=== PATIENT | female | born 1985 | race Caucasian/White ===

== ENCOUNTER 2017-03-27 21:12 | Emergency (ER) | payer BC, OTHER ==
[2017-03-27] MEDS: AMOXICILLIN 500MG CAPSULE PO ONE (22:07)
[2017-03-27] MEDS: DEXAMETHASONE SOD PHOSPHATE 10MG/ML VIAL PO ONE (22:07)
--- NOTE | 2017-03-27 22:07 | Emergency Department Record ---
History of Present Illness - General Chief complaint: ENT Stated complaint: LUMP IN THROAT Time Seen by Provider: 03/27/17 21:47 Source: Patient Mode of Arrival: Ambulatory Limitations: No limitations - History of Present Illness Initial comments: 32 yo female presents with a sore throat that started yesterday. No fevers. No voice changes. No cough. It is sore to swallow. No sputum. She is tender on the right side. She noticed some swollen glands. No choking or gagging. No ear pain. No chest pain. MD complaint: Sore throat Onset/Timin -: Days(s) Location: Throat Severity: Moderate Severity scale (1-10): 6 Consistency: Constant Improves with: None Worsens with: Eating, Swallowing, Other Associated Symptoms: Pain with swallowing, Sore throat - Related Data Home Medications Medication Instructions Recorded Confirmed Last Taken Clonazepam [Klonopin] 1 mg PO QHS 03/24/16 03/27/17 03/26/17 Acetaminop W/ Codeine 300/60Mg 1 tab PO Q6H 03/27/17 03/27/17 03/27/17 [Acetaminophen-Cod #4 Tablet] Hydroxyzine HCl [Hydroxyzine HCl] 25 mg PO Q4H 03/27/17 03/27/17 03/27/17 Previous Rx's Medication Instructions Recorded Amoxicillin 500 mg PO TID #21 capsule 03/27/17 Allergies Allergy/AdvReac Type Severity Reaction Status Date / Time NSAIDS (Non-Steroidal AdvReac ulcer Verified 03/24/16 01:41 Anti-Inflamma Travel Screening - Travel/Exposure Within Last 30 Days Have you traveled within the last 30 days?: No - Travel Symptoms Symptom Screening: None Review of Systems Constitutional: Denies: Chills, Fever, Malaise, Weakness Eyes: Denies: Eye discharge, Eye pain, Photophobia, Vision change ENT: Reports: Congestion, Throat pain. Denies: Epistaxis Respiratory: Denies: Cough, Dyspnea, Hemoptysis, Stridor, Wheezes Cardiovascular: Denies: Chest pain, Palpitations, Syncope Endocrine: Denies: Fatigue, Polydipsia, Polyuria Gastrointestinal: Denies: Abdominal pain, Diarrhea, Nausea, Vomiting Genitourinary: Reports: Dysuria (recent lithotripsy) Musculoskeletal: Denies: Arthralgia, Back pain, Neck pain Skin: Denies: Bruising, Change in color, Rash Neurological: Denies: Headache Psychiatric: Denies: Anxiety Hematological/Lymphatic: Denies: Easy bleeding, Easy bruising, Swollen glands Past Medical History - SOCIAL HISTORY Smoking Status: Never smoker Alcohol Use: None Drug Use: None - RESPIRATORY Hx Respiratory Disorders: No - CARDIOVASCULAR Hx Cardio Disorders: No - NEURO Hx Neuro Disorders: No - GI Hx GI Disorders: Yes Hx Ulcer: Yes - Hx Genitourinary Disorders: No - ENDOCRINE Hx Endocrine Disorders: No - MUSCULOSKELETAL Hx Musculoskeletal Disorders: No - PSYCH Hx Psych Problems: Yes Hx Anxiety: Yes - HEMATOLOGY/ONCOLOGY Hx Hematology/Oncology Disorders: Yes Hx Anemia: Yes Family Medical History Any Significant Family History?: Yes Family Hx Comment (NOT TO BE USED IN PLACE OF ITEMS BELOW): Mother-'s palsy Hx Cancer: Grandparents *Cancer Comment: Grandfather Hx Diabetes: Grandparents Hx Heart Disease: Grandparents Hx HTN: Grandparents Hx Resp Disorders: Mother Hx Stroke: Grandparents Physical Exam - General General Appearance: Alert, Oriented x3, Cooperative, No acute distress, Other ( Well appearing, calm, clear voice) Limitations: No limitations - Head Head exam: Normal inspection - Eye Eye exam: Normal appearance. negative: Conjunctival injection, Periorbital swelling, Periorbital tenderness, Scleral icterus - ENT ENT exam: Normal exam, Mucous membranes moist Ear exam: Normal external inspection Nasal Exam: Normal inspection Mouth exam: Normal external inspection, Tongue normal. negative: Drooling, Muffled voice, Tongue elevation Teeth exam: Normal inspection Throat exam: Normal inspection. negative: Tonsillar erythema, Tonsillomegaly, Tonsillar exudate, R peritonsillar mass, L peritonsillar mass - Neck Neck exam: Normal inspection, Lymphadenopathy (few small mobile tender right sided lymphnodes). negative: Meningismus - Respiratory Respiratory exam: Normal lung sounds bilaterally. negative: Respiratory distress, Stridor (clear voice, non labored) - Cardiovascular Cardiovascular Exam: Regular rate, Normal rhythm, Normal heart sounds - GI/Abdominal GI/Abdominal exam: Soft - Rectal Rectal exam: Deferred - exam: Deferred - Extremities Extremities exam: Normal inspection, Full ROM, Normal capillary refill. negative: Pedal edema, Tenderness - Back Back exam: Reports: Normal inspection, Full ROM. Denies: Muscle spasm, Rash noted, Tenderness - Neurological Neurological exam: Alert, Normal gait, Oriented X3 - Psychiatric Psychiatric exam: Normal affect, Normal mood. negative: Agitated, Anxious - Skin Skin exam: Dry, Intact, Normal color, Warm. negative: Erythema Course Vital Signs 03/27/17 21:20 Temperature 98.3 F Pulse Rate 83 Respiratory 16 Rate Blood Pressure 133/86 Pulse Ox 99 - Reevaluation(s) Reevaluation #1: The patient is well appearing Normal voice. Mild lymph adenopathy on the right Normal vitals Given the swollen LN she will be given Decadron and Amoxicillin We discussed reasons to return and close follow up 03/27/17 22:05 Disposition Disposition: Discharge Clinical Impression: Cervical lymphadenopathy Disposition: Home, Self-Care Condition: (1) Good Instructions: Adenitis (ED) Additional Instructions: REturn immediately if worse, fever, swelling, voice changes or concerns Call your doctor this week for close follow up Prescriptions: Amoxicillin 500 mg PO TID #21 capsule Forms: Patient Portal Access Time of Disposition: 22:08
== END 2017-03-27 23:18 | disposition home or self-care (01) ==
LOC: ER 21:12
DX: R59.1 Generalized enlarged lymph nodes (principal)
CPT/HCPCS: 96374; 99283

== ENCOUNTER 2018-07-08 12:03 | Emergency (ER) | payer SELFPAY ==
[2018-07-08] MEDS ORDERED: ONDANSETRON HCL IV 4 MG/2 ML VIAL IV ONE (12:36)
[2018-07-08] MEDS ORDERED: 0.9 % SODIUM CHLORIDE 1,000 ML BAG IV ONE (12:36)
[2018-07-08] MEDS ORDERED: KETOROLAC 30 MG/ML VIAL IVP ONE (12:36)
[2018-07-08 12:40] LABS: URINE APPEARANCE CLEAR; URINE BILIRUBIN NEGATIVE (NEGATIVE); URINE BLOOD TRACE-I (NEGATIVE); URINE COLOR YELLOW; URINE GLUCOSE (UA) NEGATIVE (NEGATIVE); URINE KETONE NEGATIVE (NEGATIVE); URINE LEUKOCYTE ESTERASE NEGATIVE (NEGATIVE); URINE NITRITE NEGATIVE (NEGATIVE); URINE PROTEIN NEGATIVE (NEGATIVE); URINE UROBILINOGEN 0.2 E.U./dL (0.20 - 1.00)
--- NOTE | 2018-07-08 12:42 | Emergency Department Record ---
History of Present Illness - General Chief complaint: Flank Pain Stated complaint: KIDNEY STONE Time Seen by Provider: 07/08/18 12:31 Source: Patient, RN notes reviewed Mode of Arrival: Ambulatory - History of Present Illness Initial comments: left flank pain and history of kidney stones and urologist is Dr. Jaimes. pain on palpation of the lower left lumbar spine area Onset/Timin -: Week(s) Severity scale (1-10): 9 Quality: Sharp Consistency: Constant Improves with: None Patient : No LMP Date: 06/10/18 Gestational Age (wks) based on LMP: 4 Associated Symptoms: Dysuria - Related Data Home Medications Medication Instructions Recorded Confirmed Last Taken Escitalopram Oxalate [Lexapro] 10 mg PO DAILY 07/08/18 07/08/18 Unknown Previous Rx's Medication Instructions Recorded Acetaminophen with Codeine 1 each PO Q4HR #18 tablet 07/08/18 [Tylenol with Codeine #4] Cyclobenzaprine HCl [Flexeril] 10 mg PO TID #30 tablet 07/08/18 Allergies Allergy/AdvReac Type Severity Reaction Status Date / Time NSAIDS (Non-Steroidal AdvReac ulcer Verified 03/24/16 01:41 Anti-Inflamma Travel Screening - Travel/Exposure Within Last 30 Days Have you traveled within the last 30 days?: No - Travel/Exposure Within Last Year Have you traveled outside the [place] in the last year?: No - Additonal Travel Details Have you been exposed to anyone with a communicable illness?: No - Travel Symptoms Symptom Screening: None Review of Systems Reviewed: No additional complaints except as noted below Constitutional: Reports: As per HPI. Denies: Chills, Fever, Malaise, Night sweats, Weakness, Weight change Eyes: Reports: As per HPI. Denies: Eye discharge, Eye pain, Photophobia, Vision change ENT: Reports: As per HPI. Denies: Congestion, Dental pain, Ear pain, Epistaxis , Hearing loss, Throat pain Respiratory: Reports: As per HPI. Denies: Cough, Dyspnea, Hemoptysis, Stridor, Wheezes Cardiovascular: Reports: As per HPI. Denies: Arrhythmia, Chest pain, Dyspnea on exertion, Edema, Murmurs, Orthopnea, Palpitations, Paroxysmal nocturnal dyspnea, Rheumatic Fever, Syncope Endocrine: Reports: As per HPI. Denies: Fatigue, Heat or cold intolerance, Polydipsia, Polyuria Gastrointestinal: Reports: As per HPI. Denies: Abdominal pain, Constipation, Diarrhea, Hematemesis, Hematochezia, Melena, Nausea, Vomiting Genitourinary: Reports: As per HPI. Denies: Abnormal menses, Discharge, Dyspareunia, Dysuria, Frequency, Hematuria, Incontinence, Retention, Urgency Musculoskeletal: Reports: As per HPI. Denies: Arthralgia, Back pain, Gout, Joint swelling, Myalgia, Neck pain Skin: Reports: As per HPI. Denies: Bruising, Change in color, Change in hair/ nails, Lesions, Pruritus, Rash Neurological: Reports: As per HPI. Denies: Abnormal gait, Confusion, Headache, Numbness, Paresthesias, Seizure, Tingling, Tremors, Vertigo, Weakness Psychiatric: Reports: As per HPI. Denies: Anxiety, Auditory hallucinations, Depression, Homicidal thoughts, Suicidal thoughts, Visual hallucinations Hematological/Lymphatic: Reports: As per HPI. Denies: Anemia, Blood Clots, Easy bleeding, Easy bruising, Swollen glands Past Medical History - SOCIAL HISTORY Smoking Status: Current every day smoker Alcohol Use: None Drug Use: None - RESPIRATORY Hx Respiratory Disorders: No - CARDIOVASCULAR Hx Cardio Disorders: No - NEURO Hx Neuro Disorders: No - GI Hx GI Disorders: Yes Hx Ulcer: Yes - Hx Genitourinary Disorders: Yes Hx Kidney Stones: Yes - ENDOCRINE Hx Endocrine Disorders: No - MUSCULOSKELETAL Hx Musculoskeletal Disorders: No - PSYCH Hx Psych Problems: Yes Hx Anxiety: Yes - HEMATOLOGY/ONCOLOGY Hx Hematology/Oncology Disorders: Yes Hx Anemia: Yes Family Medical History Any Significant Family History?: No Family Hx Comment (NOT TO BE USED IN PLACE OF ITEMS BELOW): Mother-'s palsy Hx Cancer: Grandparents *Cancer Comment: Grandfather Hx Diabetes: Grandparents Hx Heart Disease: Grandparents Hx HTN: Grandparents Hx Resp Disorders: Mother Hx Stroke: Grandparents Physical Exam - General General Appearance: Alert, Oriented x3, Cooperative, No acute distress - Head Head exam: Normal inspection - Eye Eye exam: Normal appearance, PERRL Pupils: Normal accommodation - ENT ENT exam: Normal exam, Mucous membranes moist, Normal external ear exam, Normal orophraynx, TM's normal bilaterally Ear exam: Normal external inspection. negative: External canal tenderness Nasal Exam: Normal inspection. negative: Discharge, Sinus tenderness Mouth exam: Normal external inspection, Tongue normal Teeth exam: Normal inspection. negative: Dental caries Throat exam: Normal inspection. negative: Tonsillar erythema, Tonsillar exudate - Neck Neck exam: Normal inspection, Full ROM. negative: Tenderness - Respiratory Respiratory exam: Normal lung sounds bilaterally. negative: Respiratory distress - Cardiovascular Cardiovascular Exam: Regular rate, Normal rhythm, Normal heart sounds - GI/Abdominal GI/Abdominal exam: Soft, Normal bowel sounds, Tenderness (left flank pain) - Rectal Rectal exam: Deferred - exam: Deferred - Extremities Extremities exam: Normal inspection, Full ROM, Normal capillary refill. negative: Tenderness - Back Back exam: Reports: Normal inspection, Full ROM. Denies: Muscle spasm, Rash noted, Tenderness - Neurological Neurological exam: Alert, Normal gait, Oriented X3, Reflexes normal - Psychiatric Psychiatric exam: Normal affect, Normal mood - Skin Skin exam: Dry, Intact, Normal color, Warm Course Vital Signs 07/08/18 12:08 Temperature 98.5 F Pulse Rate 69 Respiratory 16 Rate Blood Pressure 131/97 Pulse Ox 98 Medical Decision Making - Data Complexity MDM Data: Labs Ordered and/or Reviewed, X-Ray Ordered and/or Reviewed (kidney stones present ,no urethral stones or hydronephrosis.) - Lab Data Result diagrams: 07/08/18 12:46 07/08/18 12:46 Disposition Clinical Impression: Left flank pain Lumbar strain Qualifiers: Encounter type: initial encounter Qualified Code(s): S39.012A - Strain of muscle, fascia and tendon of lower back, initial encounter Disposition: Home, Self-Care Condition: (1) Good Instructions: Low Back Strain (ED) Additional Instructions: follow up with family at [facility] in 2 days heat to back three times a day Prescriptions: Acetaminophen with Codeine [Tylenol with Codeine #4] 1 each PO Q4HR #18 tablet Cyclobenzaprine HCl [Flexeril] 10 mg PO TID #30 tablet Forms: Patient Portal Access Time of Disposition: 14:20 Quality - Quality Measures Quality Measures: N/A - Blood Pressure Screening Does Patient Have Any of the Following: No Blood Pressure Classification: Hypertensive Reading Systolic Measurement: 131 Diastolic Measurement: 97 Screening for High Blood Pressure: < First Hypertensive BP, F/U Documented > [ [id number]] First Hypertensive Follow-up Interventions: Referral to alternative/primary care provider.
[2018-07-08 12:45] LABS: HCG,QUALITATIVE URINE NEGATIVE (NEGATIVE); URINE RBC 0 - 2 (NONE SEEN); URINE WBC NONE SEEN (0-2/hpf)
[2018-07-08 12:52] LABS: BASO % 0.2 % (0-6); EOS % 2.9 % (0-6); GRAN % 55.2 % (47-80); HEMATOCRIT 40.3 % (35.0-47.0); HEMOGLOBIN 12.4 gm/dl (11.6-16.0); LYMPH % 33.7 % (16-45); MEAN CELL VOLUME 88.6 fl (81-97); MEAN CORPUSCULAR HEMOGLOBIN 27.3 pg (27-33); MEAN CORPUSCULAR HGB CONC 30.8 g/dl (32-36); MEAN PLATELET VOLUME 9.7 fl (7.4-10.4); PLATELET COUNT 234 K/uL (130-400); RED BLOOD COUNT 4.55 M/uL (3.80-5.40); RED CELL DISTRIBUTION WIDTH 13.7 % (11.5-14.5); WHITE BLOOD COUNT W/O DIFF 6.3 K/uL (4.2-12.2)
[2018-07-08 13:06] LABS: BLOOD UREA NITROGEN 13 mg/dL (6-20); CREATININE 0.5 mg/dL (0.5-0.9); EST GLOMERULAR FILTRATION RATE > 60 mL/min
[2018-07-08 13:09] LABS: GLUCOSE,RANDOM 94 mg/dL (74-109)
[2018-07-08 13:11] LABS: ALBUMIN 4.5 g/dL (4.0-5.0); ALKALINE PHOSPHATASE 66 U/L (35-104); ALT/SGPT 33 U/L (<33); AST/SGOT 29 U/L (10.0-35.0); LIPASE 47 U/L (13-60)
[2018-07-08 13:12] LABS: BILIRUBIN,DIRECT < 0.2 mg/dL (0-0.3)
[2018-07-08] MEDS ORDERED: HYDROMORPHONE HCL 2 MG/ML VIAL IVP ONE (13:47)
== END 2018-07-08 14:31 | disposition home or self-care (01) ==
LOC: ER 12:03
DX: S39.012A Strain of muscle, fascia and tendon of lower back, initial encounter (principal); R30.0 Dysuria; N20.0 Calculus of kidney; Z87.891 Personal history of nicotine dependence; Z87.442 Personal history of urinary calculi; X58.XXXA Exposure to other specified factors, initial encounter
CPT/HCPCS: 99284 ×2; 96374; 96375; 96361; 83690; 85025; 80076; 80048; 81001; 81025; 74176; J1885; J2405; J1170; J7030